=== PATIENT | male | born 1960 | race Caucasian/White ===

== ENCOUNTER 2018-06-07 06:48 | Outpatient (CLI) | payer OTHER | END 2018-06-07 07:48 | disposition home or self-care (01) | LOC: LAB 06:48 | DX: D64.89 Other specified anemias (principal); N39.0 Urinary tract infection, site not specified; D68.8 Other specified coagulation defects; E88.89 Other specified metabolic disorders; E83.42 Hypomagnesemia; E11.9 Type 2 diabetes mellitus without complications; E55.9 Vitamin D deficiency, unspecified; I49.8 Other specified cardiac arrhythmias; E03.8 Other specified hypothyroidism; Z76.89 Persons encountering health services in other specified circumstances ==

== ENCOUNTER 2018-06-28 05:55 | Day surgery (SDC) | payer OTHER ==
[~2018-06-28 05:55] MED LIST: ATACAND32 MG PO; DILTIAZEM 24HR120 MG PO; FENOFIBRATE134 MG PO; MECLIZINE HCL12.5 MG PO; VITAMIN D5000 UNIT PO; ZETIA10 MG PO
== END 2018-06-28 17:15 | disposition home or self-care (01) ==
LOC: CIR.AMB 05:55
DX: M75.121 Complete rotator cuff tear or rupture of right shoulder, not specified as traumatic (principal); S43.081A Other subluxation of right shoulder joint, initial encounter; S46.211A Strain of muscle, fascia and tendon of other parts of biceps, right arm, initial encounter; M19.011 Primary osteoarthritis, right shoulder; M24.511 Contracture, right shoulder

== ENCOUNTER 2018-06-29 15:21 | Outpatient (CLI) | payer OTHER | END 2018-06-29 15:41 | disposition home or self-care (01) | LOC: RAD 15:21 | DX: M19.011 Primary osteoarthritis, right shoulder (principal) ==

== ENCOUNTER → 2018-09-15 17:45 | Outpatient (CLI) | payer OTHER | END | disposition home or self-care (01) | LOC: RAD 17:45 | DX: M54.89 Other dorsalgia (principal); M25.551 Pain in right hip ==

== ENCOUNTER 2019-07-01 10:39 | Emergency (ER) | payer OTHER ==
[~2019-07-01] VITALS: Ht 154.9 cm; Wt 88.0 kg
== END 2019-07-01 20:11 | disposition home or self-care (01) ==
LOC: ER 10:39 → CPU-OBS 10:40 → ER 20:11
DX: R42 Dizziness and giddiness (principal); R61 Generalized hyperhidrosis
CPT/HCPCS: G0378; G0379; 93005

== ENCOUNTER 2021-09-19 21:06 | Emergency (ER) | payer OTHER ==
[~2021-09-19] VITALS: Ht 177.8 cm; Wt 81.6 kg
[2021-09-20] MEDS ORDERED: PREPARATION H C26 GM RECTAL (05:47)
[2021-09-20] MEDS ORDERED: SURFAK240 M1 PO (05:47)
== END 2021-09-20 05:57 | disposition home or self-care (01) ==
LOC: ER 21:06
DX: K62.5 Hemorrhage of anus and rectum (principal); K64.8 Other hemorrhoids; K57.30 Diverticulosis of large intestine without perforation or abscess without bleeding
CPT/HCPCS: 74177; Q9965

== ENCOUNTER 2022-11-18 12:13 | Outpatient (CLI) | payer OTHER ==
[~2022-11-18 12:13] MED LIST changes: +PREPARATION H C26 GM RECTAL; +SURFAK240 M1 PO
== END 2022-11-18 12:17 | disposition home or self-care (01) ==
LOC: RAD 12:13
PROVIDERS: ATTEND Orthopaedic Surgery
DX: M25.562 Pain in left knee (principal)

== ENCOUNTER 2025-02-12 07:49 | Outpatient (CLI) | payer OTHER ==
[2025-02-12 08:39] LABS: URINE APPEARANCE Clear; URINE BILIRRUBIN Negative (NEGATIVE); URINE BLOOD Negative; URINE COLOR Yellow; URINE GLUCOSE Negative (NEGATIVE); URINE KETONE Negative (NEGATIVE); URINE LEUKOCYTE Negative; URINE NITRATE Negative; URINE PROTEIN Negative (NEGATIVE); URINE UROBILINOGEN 0.2 E.U./dl
[2025-02-12 08:43] LABS: URINE BACTERIA 3.6 uL (0.0-1933); URINE RBC 1.4 uL (0.0-20.8); URINE WBC 0.3 uL (0.0-23.2)
[2025-02-12 08:43] LABS: HEMATOCRIT 46.2 % (39.0-48.0); HEMOGLOBIN 15.6 g/dL (13-16.00); MEAN CELL VOLUME 85.3 fL (80.0-100.00); MEAN CORPUSCULAR HEMOGLOBIN 28.8 pg (27.00-32.0); MEAN CORPUSCULAR HGB CONC 33.7 g/dl (32.0-36.0); PLATELET COUNT 257 K/uL (150-450); RED BLOOD COUNT 5.42 M/uL (4.00-6.00); RED CELL DISTRIBUTION WIDTH 14.1 % (11.5-14.5)
[2025-02-12 09:15] LABS: COL EPI 139 SECONDS (82-175)
[2025-02-12 09:17] LABS: INR 1.06; PROTHROMBIN TIME 11.5 SECONDS (9.0-11.5)
[2025-02-12 09:41] LABS: ALBUMIN 4.2 gm/dL (3.4-5.0); BILIRUBIN TOTAL 0.67 mg/dL (0.3-1.2); CALCIUM 9.6 mg/dL (8.5-10.1); CREATININE SERUM 0.94 mg/dL (0.70-1.30); GFR 80.79; GLOBULINA 3.1 G/DL (2.4-3.5); POTASSIUM 4.08 mEq/L (3.5-5.1); TOTAL PROTEIN 7.3 gm/dL (6.4-8.2)
== END 2025-02-12 07:57 | disposition home or self-care (01) ==
LOC: RAD 07:49
PROVIDERS: ATTEND Orthopaedic Surgery
DX: D64.9 Anemia, unspecified (principal); E88.89 Other specified metabolic disorders; D68.8 Other specified coagulation defects; N39.0 Urinary tract infection, site not specified; Z22.322 Carrier or suspected carrier of Methicillin resistant Staphylococcus aureus; E11.9 Type 2 diabetes mellitus without complications; Z76.89 Persons encountering health services in other specified circumstances